=== PATIENT | female | born 1970 | race Caucasian/White ===

== ENCOUNTER 2017-10-12 10:30 | Emergency (ER) | payer MEDICARE ==
[~2017-10-12] VITALS: Ht 177.8 cm; Wt 74.5 kg
[~2017-10-12 10:30] MED LIST: AMBIEN 10MG10 MG PO; DILAUDID 2MG TAB2 MG PO; ESTRACE 1MG1 MG/TAB PO; EXCEDRIN1 TAB PO; FLEXERIL 1010 MG/TAB PO; GUAIFEN AC 10120 ML PO; IMITREX ST6 MG/0.5 M SC; IMITREX100 MG PO; IMITREX50 MG PO; INDERAL 20MG20 MG PO; LEXAPRO 10MG10 MG PO; LORTAB 10/500 51 TAB PO; LORTAB 5/500 501 TAB PO; MAGIC MOUTH PO; NAPROSYN500 MG PO; NO HOME MEDICATIONS; NORCO 325 MG-51 TAB PO; PAMELOR 25MG25 MG PO; PERCOCET 325 MG1 TA2; PERCOCET 325 MG1 TA2 PO; PHENERGAN 25 TA25 MG PO; SKELAXIN 800MG800 MG PO; VENTOLIN0.09 MG IH
[2017-10-12 10:31] VITALS: BP 132/64; PULSE 90; TEMP 98.6
[2017-10-12] MEDS ORDERED: WELLBUTRIN 75MG75 MG PO (10:34)
[2017-10-12] MEDS ORDERED: ZANAFLEX 4MG TAB4 MG PO (10:35)
== END 2017-10-12 11:22 | disposition home or self-care (01) ==
LOC: COL.ER 10:30
DX: G43.909 Migraine, unspecified, not intractable, without status migrainosus (principal); F17.210 Nicotine dependence, cigarettes, uncomplicated
CPT/HCPCS: J1170; J2550

== ENCOUNTER 2017-10-16 19:41 | Emergency (ER) | payer MEDICARE ==
[~2017-10-16] VITALS: Ht 177.8 cm; Wt 74.5 kg
[~2017-10-16 19:41] MED LIST changes: +WELLBUTRIN 75MG75 MG PO; +ZANAFLEX 4MG TAB4 MG PO
[2017-10-16 19:43] VITALS: BP 142/68; TEMP 98.1
[2017-10-16] MEDS ORDERED: PAMELOR 25MG25 MG PO (19:45)
[2017-10-16 21:38] VITALS: PULSE 80
== END 2017-10-16 21:41 | disposition home or self-care (01) ==
LOC: COL.ER 19:41
DX: G43.909 Migraine, unspecified, not intractable, without status migrainosus (principal); F32.9 Major depressive disorder, single episode, unspecified; F17.210 Nicotine dependence, cigarettes, uncomplicated
CPT/HCPCS: J1170; J2550

== ENCOUNTER 2017-10-31 10:51 | Emergency (ER) | payer MEDICARE ==
[~2017-10-31] VITALS: Ht 177.8 cm; Wt 75.0 kg
[2017-10-31 10:53] VITALS: BP 129/58; TEMP 98.7
[2017-10-31 11:43] VITALS: PULSE 74
== END 2017-10-31 11:44 | disposition home or self-care (01) ==
LOC: COL.ER 10:51
DX: G43.909 Migraine, unspecified, not intractable, without status migrainosus (principal); F32.9 Major depressive disorder, single episode, unspecified; F17.210 Nicotine dependence, cigarettes, uncomplicated; Z90.710 Acquired absence of both cervix and uterus
CPT/HCPCS: J2300; J2550

== ENCOUNTER 2018-03-07 20:42 | Emergency (ER) | payer MEDICARE ==
[~2018-03-07] VITALS: Ht 177.8 cm; Wt 77.3 kg
[2018-03-07 20:49] VITALS: BP 144/94; TEMP 99.4
[2018-03-07] MEDS ORDERED: AMBIEN 10MG10 MG PO (21:32)
[2018-03-07] MEDS ORDERED: PERCOCET 325 MG1 TA2 PO (22:34)
[2018-03-07 23:35] VITALS: PULSE 87
== END 2018-03-07 23:35 | disposition home or self-care (01) ==
LOC: COL.ER 20:42
DX: S00.83XA Contusion of other part of head, initial encounter (principal); S70.02XA Contusion of left hip, initial encounter; G43.909 Migraine, unspecified, not intractable, without status migrainosus; G89.29 Other chronic pain; Y04.0XXA Assault by unarmed brawl or fight, initial encounter; Y92.410 Unspecified street and highway as the place of occurrence of the external cause
CPT/HCPCS: J1170; J2550

== ENCOUNTER 2018-03-29 08:14 | Emergency (ER) | payer MEDICARE ==
[~2018-03-29] VITALS: Ht 177.8 cm; Wt 82.2 kg
[2018-03-29 08:17] VITALS: BP 145/67; TEMP 98.5
[2018-03-29 08:57] LABS: BASO # 0.1 (0.0-0.2); BASO % 0.9 % (0.0-2.0); EOS # 0.2 (0.0-0.7); EOS % 3.2 % (0-4.0); GRAN # 3.4 (1.4-6.5); GRAN % 48.4 % (42.2-75.2); HEMATOCRIT 42.9 % (37.0-47.0); HEMOGLOBIN 14.8 g/dl (12.5-16.0); LYMPH # 2.7 (1.2-3.4); LYMPH % 39.7 % (20.0-51.0); MEAN CELL VOLUME 87 fl (80.0-100.0); MEAN CORPUSCULAR HEMOGLOBIN 30 pg (27.0-31.0); MEAN CORPUSCULAR HGB CONC 35 g/dl (33.0-37.0); MEAN PLATELET VOLUME 10.1 fl (7.4-10.4); MONO # 0.5 (0.1-0.6); MONO % 7.5 % (1.7-9.3); PLATELET COUNT 293 K/mm3 (130-400); RED BLOOD COUNT 4.93 M/mm3 (4.10-5.30); REDCELL DISTRIBUTION WIDTH-CV 11.8 % (11.5-14.5)
[2018-03-29 09:10] LABS: ALANINE AMINOTRANSFERASE 26 U/L (9-52); ALBUMIN 4.2 gm/dL (3.5-5.0); ALKALINE PHOSPHATASE 71 U/L (50-136); ANION GAP 10 mmol/L (7-16); AST,SGOT 22 U/L (15-37); BILIRUBIN,TOTAL 0.5 mg/dL (0.0-1.0); BLOOD UREA NITROGEN 12 mg/dL (7-17); CALCIUM 9.1 mg/dL (8.4-10.2); CARBON DIOXIDE 28 mmol/L (22-30); CHLORIDE 102 mmol/L (98-107); CREATININE, serum 0.62 mg/dL (0.52-1.25); GLUCOSE 101 mg/dL (74-106); POTASSIUM 3.7 mmol/L (3.4-5.0); SODIUM 140 mmol/L (137-145); TOTAL PROTEIN 7.2 gm/dL (6.4-8.2)
[2018-03-29 09:14] LABS: C-REACTIVE PROTEIN < 0.5 mg/dL (0.0-0.9)
[2018-03-29] MEDS ORDERED: NAPROSYN500 MG PO (09:18)
[2018-03-29] MEDS ORDERED: PREDNISONE10 MG PO (09:18)
[2018-03-29] MEDS ORDERED: ZOFRAN ODT4 MG PO (09:18)
[2018-03-29 09:22] LABS: ERYTHROCYTE SEDIMENTATION RATE 4 mm/hr (0-20)
[2018-03-29 09:58] VITALS: PULSE 92
== END 2018-03-29 09:59 | disposition home or self-care (01) ==
LOC: COL.ER 08:14
PROVIDERS: Physician Assistant
DX: M79.675 Pain in left toe(s) (principal); G43.909 Migraine, unspecified, not intractable, without status migrainosus; F41.9 Anxiety disorder, unspecified; F32.9 Major depressive disorder, single episode, unspecified; F17.210 Nicotine dependence, cigarettes, uncomplicated
CPT/HCPCS: J0595; J2550

== ENCOUNTER 2018-04-03 17:48 | Emergency (ER) | payer MEDICARE ==
[~2018-04-03] VITALS: Ht 177.8 cm; Wt 81.8 kg
[~2018-04-03 17:48] MED LIST changes: +PREDNISONE10 MG PO; +ZOFRAN ODT4 MG PO
[2018-04-03 17:58] VITALS: BP 135/85; TEMP 99
[2018-04-03 20:35] VITALS: PULSE 98
== END 2018-04-03 20:35 | disposition home or self-care (01) ==
LOC: COL.ER 17:48
DX: G43.909 Migraine, unspecified, not intractable, without status migrainosus (principal); F17.210 Nicotine dependence, cigarettes, uncomplicated; F32.9 Major depressive disorder, single episode, unspecified; F41.9 Anxiety disorder, unspecified; Z90.89 Acquired absence of other organs; Z90.49 Acquired absence of other specified parts of digestive tract
CPT/HCPCS: J1170; J2550

== ENCOUNTER 2018-04-16 08:23 | Emergency (ER) | payer MEDICARE ==
[~2018-04-16] VITALS: Ht 177.8 cm; Wt 81.8 kg
[2018-04-16 08:29] VITALS: BP 132/60; TEMP 99.1
[2018-04-16 09:04] VITALS: PULSE 84
== END 2018-04-16 09:04 | disposition home or self-care (01) ==
LOC: COL.ER 08:23
DX: G43.909 Migraine, unspecified, not intractable, without status migrainosus (principal); F32.9 Major depressive disorder, single episode, unspecified
CPT/HCPCS: J1170; J2550

== ENCOUNTER 2018-04-20 10:56 | Emergency (ER) | payer MEDICARE ==
[~2018-04-20] VITALS: Ht 177.8 cm; Wt 83.2 kg
[2018-04-20 10:59] VITALS: BP 114/63; TEMP 99.1
[2018-04-20] MEDS ORDERED: PERCOCET 325 MG1 TA2 PO (12:51)
[2018-04-20 13:01] VITALS: PULSE 66
== END 2018-04-20 13:03 | disposition home or self-care (01) ==
LOC: COL.ER 10:56
DX: M54.5 Low back pain (principal); G43.909 Migraine, unspecified, not intractable, without status migrainosus; F17.210 Nicotine dependence, cigarettes, uncomplicated; F32.9 Major depressive disorder, single episode, unspecified; F41.9 Anxiety disorder, unspecified; Z98.890 Other specified postprocedural states
CPT/HCPCS: J1170; J1885; J2360

== ENCOUNTER 2018-08-06 13:02 | Emergency (ER) | payer OTHER, MEDICARE ==
[~2018-08-06] VITALS: Ht 177.8 cm; Wt 77.3 kg
[2018-08-06 13:10] VITALS: BP 151/77; TEMP 99
[2018-08-06 17:23] VITALS: PULSE 73
== END 2018-08-06 17:22 | disposition home or self-care (01) ==
LOC: COL.ER 13:02
DX: G43.909 Migraine, unspecified, not intractable, without status migrainosus (principal); F17.210 Nicotine dependence, cigarettes, uncomplicated; F12.90 Cannabis use, unspecified, uncomplicated; Z90.710 Acquired absence of both cervix and uterus; Z90.89 Acquired absence of other organs
CPT/HCPCS: J1170; J2550

== ENCOUNTER 2018-08-18 15:36 | Emergency (ER) | payer MEDICARE, OTHER ==
[~2018-08-18] VITALS: Ht 177.8 cm; Wt 83.5 kg
[2018-08-18 16:42] VITALS: BP 122/83; PULSE 95; TEMP 98.6
== END 2018-08-18 16:43 | disposition home or self-care (01) ==
LOC: COL.ER 15:36
DX: G43.909 Migraine, unspecified, not intractable, without status migrainosus (principal); F17.210 Nicotine dependence, cigarettes, uncomplicated
CPT/HCPCS: J1170; J1200; J2550

== ENCOUNTER 2018-09-09 11:53 | Emergency (ER) | payer MEDICARE, OTHER ==
[~2018-09-09] VITALS: Ht 177.8 cm; Wt 77.3 kg
[2018-09-09 12:13] VITALS: TEMP 97.7
[2018-09-09 16:49] VITALS: BP 110/60; PULSE 68
== END 2018-09-09 16:50 | disposition home or self-care (01) ==
LOC: COL.ER 11:53
DX: G43.909 Migraine, unspecified, not intractable, without status migrainosus (principal); F41.9 Anxiety disorder, unspecified; F32.9 Major depressive disorder, single episode, unspecified; F17.210 Nicotine dependence, cigarettes, uncomplicated; Z90.710 Acquired absence of both cervix and uterus; Z90.89 Acquired absence of other organs; Z90.49 Acquired absence of other specified parts of digestive tract; Z88.1 Allergy status to other antibiotic agents
CPT/HCPCS: J1200; J2765

== ENCOUNTER 2018-10-05 16:18 | Emergency (ER) | payer OTHER, MEDICARE ==
[~2018-10-05] VITALS: Ht 177.8 cm; Wt 75.7 kg
[2018-10-05 16:29] VITALS: BP 111/52; PULSE 69; TEMP 98.5
== END 2018-10-05 18:13 | disposition home or self-care (01) ==
LOC: COL.ER 16:18
DX: G43.909 Migraine, unspecified, not intractable, without status migrainosus (principal); F32.9 Major depressive disorder, single episode, unspecified; F41.9 Anxiety disorder, unspecified; Z87.891 Personal history of nicotine dependence; Z88.1 Allergy status to other antibiotic agents
CPT/HCPCS: J1200; J2550

== ENCOUNTER 2018-10-09 14:11 | Emergency (ER) | payer OTHER ==
[~2018-10-09] VITALS: Ht 177.8 cm; Wt 75.5 kg
[2018-10-09 14:23] VITALS: BP 141/60; PULSE 98; TEMP 99.2
[2018-10-09] MEDS ORDERED: CEPHALEXIN500 M1 PO (15:25)
[2018-10-09] MEDS ORDERED: ULTRAM 50MG TAB50 MG PO (15:25)
[2018-10-10] MEDS ORDERED: PHENERGAN 25 TA25 MG PO (00:06)
== END 2018-10-09 15:43 | disposition home or self-care (01) ==
LOC: COL.ER 14:11
DX: S61.412A Laceration without foreign body of left hand, initial encounter (principal); G43.909 Migraine, unspecified, not intractable, without status migrainosus; F32.9 Major depressive disorder, single episode, unspecified; F41.9 Anxiety disorder, unspecified; F17.210 Nicotine dependence, cigarettes, uncomplicated; Z23 Encounter for immunization; W26.8XXA Contact with other sharp object(s), not elsewhere classified, initial encounter; Y92.009 Unspecified place in unspecified non-institutional (private) residence as the place of occurrence of the external cause

== ENCOUNTER 2018-10-09 22:37 | Emergency (ER) | payer OTHER ==
[~2018-10-09] VITALS: Ht 177.8 cm; Wt 75.5 kg
[~2018-10-09 22:37] MED LIST changes: +CEPHALEXIN500 M1 PO; +ULTRAM 50MG TAB50 MG PO
[2018-10-09 22:42] VITALS: BP 137/76; TEMP 98
[2018-10-10] MEDS ORDERED: PHENERGAN 25 TA25 MG PO (00:06)
[2018-10-10 00:48] VITALS: PULSE 77
== END 2018-10-10 00:45 | disposition home or self-care (01) ==
LOC: COL.ER 22:37
DX: R11.2 Nausea with vomiting, unspecified (principal); M79.642 Pain in left hand; G43.909 Migraine, unspecified, not intractable, without status migrainosus; Z88.1 Allergy status to other antibiotic agents; Z87.891 Personal history of nicotine dependence
CPT/HCPCS: J1885; J2550

== ENCOUNTER → 2018-10-16 | Outpatient (CLI) | payer OTHER | LOC: COL.RAD 11:53 | DX: M54.2 Cervicalgia (principal); M79.602 Pain in left arm; M79.601 Pain in right arm; Z98.890 Other specified postprocedural states ==

== ENCOUNTER 2018-12-31 18:14 | Emergency (ER) | payer OTHER ==
[~2018-12-31] VITALS: Ht 177.8 cm; Wt 72.7 kg
[~2018-12-31 18:14] MED LIST changes: -WELLBUTRIN 75MG75 MG PO; +WELLBUTRIN XL300 M1 PO
[2018-12-31 18:22] VITALS: TEMP 98
[2018-12-31 21:10] VITALS: BP 158/84; PULSE 59
== END 2018-12-31 21:10 | disposition home or self-care (01) ==
LOC: COL.ER 18:14
DX: G43.909 Migraine, unspecified, not intractable, without status migrainosus (principal); F17.210 Nicotine dependence, cigarettes, uncomplicated; Z90.89 Acquired absence of other organs; Z90.49 Acquired absence of other specified parts of digestive tract; Z90.710 Acquired absence of both cervix and uterus
CPT/HCPCS: J0595; J1170; J1200; J1885; J2550; J7030

== ENCOUNTER 2019-01-03 16:12 | Emergency (ER) | payer OTHER ==
[~2019-01-03] VITALS: Ht 177.8 cm; Wt 72.7 kg
[2019-01-03 16:18] VITALS: BP 162/77; TEMP 98.2
[2019-01-03] MEDS ORDERED: CATAPRES 0.1MG0.1 MG PO (17:02)
[2019-01-03 20:00] VITALS: PULSE 93
== END 2019-01-03 20:00 | disposition home or self-care (01) ==
LOC: COL.ER 16:12
DX: G43.909 Migraine, unspecified, not intractable, without status migrainosus (principal); F32.9 Major depressive disorder, single episode, unspecified; F41.9 Anxiety disorder, unspecified; Z90.49 Acquired absence of other specified parts of digestive tract; Z90.89 Acquired absence of other organs; Z90.710 Acquired absence of both cervix and uterus; Z88.1 Allergy status to other antibiotic agents
CPT/HCPCS: J1200; J1885; J2765; J3010; J7030

== ENCOUNTER 2019-03-04 02:35 | Emergency (ER) | payer OTHER ==
[~2019-03-04] VITALS: Ht 177.8 cm; Wt 67.3 kg
[~2019-03-04 02:35] MED LIST changes: +CATAPRES 0.1MG0.1 MG PO
[2019-03-04 02:51] VITALS: TEMP 97.5
[2019-03-04 03:47] LABS: BASO # 0.1 (0.0-0.2); BASO % 0.5 % (0.0-2.0); EOS # 0.1 (0.0-0.7); EOS % 1.5 % (0-4.0); GRAN # 5.3 (1.4-6.5); GRAN % 58.8 % (42.2-75.2); HEMATOCRIT 41.9 % (37.0-47.0); HEMOGLOBIN 14.1 g/dl (12.5-16.0); MEAN CELL VOLUME 88 fl (80.0-100.0); MEAN CORPUSCULAR HEMOGLOBIN 30 pg (27.0-31.0); MEAN CORPUSCULAR HGB CONC 34 g/dl (33.0-37.0); MEAN PLATELET VOLUME 11.2 fl (7.4-10.4); MONO # 0.5 (0.1-0.6); MONO % 5.9 % (1.7-9.3); PLATELET COUNT 315 K/mm3 (130-400); RED BLOOD COUNT 4.76 M/mm3 (4.10-5.30)
[2019-03-04 03:50] LABS: INR 0.9 (0.8-3.0); PROTHROMBIN TIME 10.6 SECONDS (9.7-12.8)
[2019-03-04 03:54] LABS: ALANINE AMINOTRANSFERASE < 6 U/L (9-52); ALBUMIN 4.2 gm/dL (3.5-5.0); ALKALINE PHOSPHATASE 68 U/L (50-136); ANION GAP 13 mmol/L (7-16); AST,SGOT 21 U/L (15-37); BILIRUBIN,TOTAL 0.8 mg/dL (0.0-1.0); BLOOD UREA NITROGEN 16 mg/dL (7-17); CALCIUM 9.6 mg/dL (8.4-10.2); CARBON DIOXIDE 25 mmol/L (22-30); CHLORIDE 105 mmol/L (98-107); CREATININE, serum 0.68 (0.52-1.25); GLUCOSE 100 mg/dL (74-106); POTASSIUM 3.1 mmol/L (3.4-5.0); SODIUM 143 mmol/L (137-145); TOTAL PROTEIN 7.1 gm/dL (6.4-8.2)
[2019-03-04 04:05] LABS: TROPONIN-I < 0.012 ng/mL (0.000-0.035)
[2019-03-04 04:23] LABS: D-DIMER < 200.00 ng/mLDDu (200-230)
[2019-03-04 07:37] VITALS: BP 97/59; PULSE 55
== END 2019-03-04 07:35 | disposition home or self-care (01) ==
LOC: COL.ER 02:35
PROVIDERS: Emergency Medicine
DX: G43.909 Migraine, unspecified, not intractable, without status migrainosus (principal); R07.89 Other chest pain; I10 Essential (primary) hypertension; F17.210 Nicotine dependence, cigarettes, uncomplicated; Z90.49 Acquired absence of other specified parts of digestive tract; Z90.710 Acquired absence of both cervix and uterus
CPT/HCPCS: J1170; J2405; J7030

== ENCOUNTER 2019-06-16 08:24 | Emergency (ER) | payer OTHER ==
[~2019-06-16] VITALS: Ht 177.8 cm; Wt 66.8 kg
[2019-06-16 08:30] VITALS: BP 129/79; TEMP 98.7
[2019-06-16] MEDS ORDERED: TOPROL XL 50MG50 MG PO (08:36)
[2019-06-16 09:27] VITALS: PULSE 61
== END 2019-06-16 09:27 | disposition home or self-care (01) ==
LOC: COL.ER 08:24
DX: G43.909 Migraine, unspecified, not intractable, without status migrainosus (principal)
CPT/HCPCS: J1885; J2550

== ENCOUNTER 2019-07-14 11:17 | Emergency (ER) | payer OTHER ==
[~2019-07-14] VITALS: Ht 177.8 cm; Wt 65.9 kg
[~2019-07-14 11:17] MED LIST changes: +TOPROL XL 50MG50 MG PO
[2019-07-14 11:24] VITALS: BP 115/67; TEMP 98
[2019-07-14] MEDS ORDERED: WELLBUTRIN XL300 M1 PO (11:48)
[2019-07-14 14:09] VITALS: PULSE 55
== END 2019-07-14 14:10 | disposition home or self-care (01) ==
LOC: COL.ER 11:17
DX: G43.909 Migraine, unspecified, not intractable, without status migrainosus (principal); F17.210 Nicotine dependence, cigarettes, uncomplicated; F32.9 Major depressive disorder, single episode, unspecified; F41.9 Anxiety disorder, unspecified; Z88.1 Allergy status to other antibiotic agents; Z90.89 Acquired absence of other organs
CPT/HCPCS: J1200; J1885; J2550; J2765; J7030

== ENCOUNTER 2019-08-15 18:11 | Emergency (ER) | payer OTHER ==
[~2019-08-15] VITALS: Ht 177.8 cm; Wt 63.2 kg
[2019-08-15 18:15] VITALS: BP 141/66; TEMP 98.8
[2019-08-15 19:15] LABS: COLLECTION METHOD CLEAN CATCH
[2019-08-15 19:17] LABS: BASO # 0.1 (0.0-0.2); BASO % 1.1 % (0.0-2.0); EOS # 0.3 (0.0-0.7); EOS % 3.5 % (0-4.0); GRAN # 3.5 (1.4-6.5); GRAN % 40.9 % (42.2-75.2); HEMATOCRIT 40.1 % (37.0-47.0); LYMPH % 46.6 % (20.0-51.0); MEAN CELL VOLUME 88 fl (80.0-100.0); MEAN CORPUSCULAR HEMOGLOBIN 31 pg (27.0-31.0); MEAN CORPUSCULAR HGB CONC 35 g/dl (33.0-37.0); MEAN PLATELET VOLUME 10.9 fl (7.4-10.4); MONO # 0.7 (0.1-0.6); MONO % 7.7 % (1.7-9.3); PLATELET COUNT 308 K/mm3 (130-400); RED BLOOD COUNT 4.54 M/mm3 (4.10-5.30); REDCELL DISTRIBUTION WIDTH-CV 11.9 % (11.5-14.5)
[2019-08-15 19:21] LABS: MUCOUS Present /lpf; PH 8 (5-8); URINE APPEARANCE Clear; URINE BACTERIA None Seen /hpf; URINE BILIRUBIN Negative (NEGATIVE); URINE BLOOD Negative (NEGATIVE); URINE COLOR Yellow; URINE GLUCOSE Negative (NEGATIVE); URINE KETONE Negative (NEGATIVE); URINE LEUKOCYTE ESTERASE Trace (NEGATIVE); URINE NITRATE Negative (NEGATIVE); URINE PROTEIN(semi-quant) Negative (NEGATIVE); URINE RBC 0-2 /hpf
[2019-08-15 19:32] LABS: ALBUMIN 4.3 gm/dL (3.5-5.0); BILIRUBIN,TOTAL 0.3 mg/dL (0.0-1.0); CALCIUM 9.4 mg/dL (8.4-10.2); CREATININE, serum 0.9 (0.52-1.25); POTASSIUM 3.1 mmol/L (3.4-5.0); TOTAL PROTEIN 6.9 gm/dL (6.4-8.2)
[2019-08-15 21:02] VITALS: PULSE 64
== END 2019-08-15 21:02 | disposition home or self-care (01) ==
LOC: COL.ER 18:11
PROVIDERS: Nurse Practitioner
DX: R10.9 Unspecified abdominal pain (principal); F32.9 Major depressive disorder, single episode, unspecified; F41.9 Anxiety disorder, unspecified; F17.210 Nicotine dependence, cigarettes, uncomplicated; Z90.710 Acquired absence of both cervix and uterus; Z90.89 Acquired absence of other organs
CPT/HCPCS: J1170; J2405; J7030

== ENCOUNTER → 2019-08-30 | Outpatient (CLI) | payer OTHER | LOC: COL.RAD 14:30 | DX: N20.0 Calculus of kidney (principal) ==

== ENCOUNTER 2020-02-13 11:24 | Emergency (ER) | payer OTHER ==
[~2020-02-13] VITALS: Ht 177.8 cm; Wt 63.6 kg
[2020-02-13 11:31] VITALS: BP 145/88; TEMP 98.7
[2020-02-13 11:56] LABS: COLLECTION METHOD CLEAN CATCH
[2020-02-13 12:02] LABS: MUCOUS Present /lpf; PH 6 (5-8); SQUAMOUS EPITHELIAL 0-2 /hpf; URINE APPEARANCE Clear; URINE BACTERIA None Seen /hpf; URINE BILIRUBIN Negative (NEGATIVE); URINE BLOOD Negative (NEGATIVE); URINE COLOR Straw; URINE GLUCOSE Negative (NEGATIVE); URINE KETONE Negative (NEGATIVE); URINE LEUKOCYTE ESTERASE Negative (NEGATIVE); URINE NITRATE Negative (NEGATIVE); URINE PROTEIN(semi-quant) Negative (NEGATIVE); URINE RBC 0-2 /hpf; URINE UROBILINOGEN Negative (NEGATIVE)
[2020-02-13] MEDS ORDERED: ZOFRAN ODT4 MG PO (12:44)
[2020-02-13] MEDS ORDERED: PERCOCET 325 MG1 TA2 PO (12:44)
[2020-02-13 12:50] VITALS: PULSE 66
== END 2020-02-13 12:50 | disposition home or self-care (01) ==
LOC: COL.ER 11:24
PROVIDERS: Emergency Medicine
DX: N20.0 Calculus of kidney (principal); Z87.442 Personal history of urinary calculi; Z98.890 Other specified postprocedural states; Z90.49 Acquired absence of other specified parts of digestive tract; Z90.710 Acquired absence of both cervix and uterus; F17.210 Nicotine dependence, cigarettes, uncomplicated

== ENCOUNTER → 2020-02-15 | Outpatient (CLI) | payer OTHER | LOC: COL.RAD 13:26 | DX: N20.0 Calculus of kidney (principal); Z90.49 Acquired absence of other specified parts of digestive tract; Z90.710 Acquired absence of both cervix and uterus ==

== ENCOUNTER → 2020-04-03 | Outpatient (CLI) | payer OTHER ==
[~2020-04-03] MED LIST changes: +AMBIEN 5MG TABLE5 MG PO
== END ==
LOC: ZCOL.LAB 15:56
DX: R05 Cough (principal); R50.9 Fever, unspecified; Z20.828 Contact with and (suspected) exposure to other viral communicable diseases

== ENCOUNTER 2020-04-19 19:43 | Emergency (ER) | payer OTHER ==
[~2020-04-19] VITALS: Ht 177.8 cm; Wt 61.4 kg
[2020-04-19 19:52] VITALS: TEMP 98.5
[2020-04-19 22:06] LABS: COLLECTION METHOD CLEAN CATCH
[2020-04-19 22:09] LABS: BASO # 0.1 (0.0-0.2); BASO % 0.8 % (0.0-2.0); EOS # 0.4 (0.0-0.7); EOS % 4.9 % (0-4.0); GRAN # 2.8 (1.4-6.5); GRAN % 39.2 % (42.2-75.2); HEMATOCRIT 40.9 % (37.0-47.0); HEMOGLOBIN 13.9 g/dl (12.5-16.0); LYMPH # 3.4 (1.2-3.4); LYMPH % 47.7 % (20.0-51.0); MEAN CELL VOLUME 91 fl (80.0-100.0); MEAN CORPUSCULAR HEMOGLOBIN 31 pg (27.0-31.0); MEAN CORPUSCULAR HGB CONC 34 g/dl (33.0-37.0); MEAN PLATELET VOLUME 10.5 fl (7.4-10.4); MONO # 0.5 (0.1-0.6); MONO % 7.1 % (1.7-9.3); PLATELET COUNT 266 K/mm3 (130-400); RED BLOOD COUNT 4.49 M/mm3 (4.10-5.30); REDCELL DISTRIBUTION WIDTH-CV 11.9 % (11.5-14.5)
[2020-04-19 22:12] LABS: MUCOUS Present /lpf; PH 6 (5-8); URINE APPEARANCE Clear; URINE BACTERIA None Seen /hpf; URINE BILIRUBIN Negative (NEGATIVE); URINE BLOOD Negative (NEGATIVE); URINE COLOR Yellow; URINE GLUCOSE Negative (NEGATIVE); URINE KETONE Negative (NEGATIVE); URINE LEUKOCYTE ESTERASE Negative (NEGATIVE); URINE NITRATE Negative (NEGATIVE); URINE PROTEIN(semi-quant) Negative (NEGATIVE); URINE RBC 0-2 /hpf
[2020-04-19 22:23] LABS: ALANINE AMINOTRANSFERASE 24 U/L (4-34); ALBUMIN 4.3 gm/dL (3.5-5.0); ALKALINE PHOSPHATASE 83 U/L (50-136); ANION GAP 7 mmol/L (7-16); AST,SGOT 24 U/L (15-37); BILIRUBIN,TOTAL 0.4 mg/dL (0.0-1.0); BLOOD UREA NITROGEN 18 mg/dL (7-17); CALCIUM 9.2 mg/dL (8.4-10.2); CARBON DIOXIDE 29 mmol/L (22-30); CHLORIDE 104 mmol/L (98-107); CREATININE, serum 0.65 (0.52-1.25); GLUCOSE 94 mg/dL (74-106); LIPASE 53 U/L (23-300); POTASSIUM 3.4 mmol/L (3.4-5.0); SODIUM 140 mmol/L (137-145); TOTAL PROTEIN 7.1 gm/dL (6.4-8.2)
[2020-04-19 22:28] LABS: C-REACTIVE PROTEIN < 0.5 mg/dL (0.0-0.9)
[2020-04-19 23:50] VITALS: BP 150/70; PULSE 80
== END 2020-04-19 23:50 | disposition home or self-care (01) ==
LOC: COL.ER 19:43
PROVIDERS: Nurse Practitioner
DX: R10.11 Right upper quadrant pain (principal); G43.909 Migraine, unspecified, not intractable, without status migrainosus; F32.9 Major depressive disorder, single episode, unspecified; F41.9 Anxiety disorder, unspecified; F17.210 Nicotine dependence, cigarettes, uncomplicated; Z90.49 Acquired absence of other specified parts of digestive tract; Z90.710 Acquired absence of both cervix and uterus; Z88.1 Allergy status to other antibiotic agents
CPT/HCPCS: J1170; J2405; J7030

== ENCOUNTER → 2020-04-20 | Outpatient (CLI) | payer OTHER | LOC: COL.RAD 10:27 | DX: R74.8 Abnormal levels of other serum enzymes (principal); Z90.49 Acquired absence of other specified parts of digestive tract ==

== ENCOUNTER 2020-05-18 13:28 | Emergency (ER) | payer OTHER ==
[~2020-05-18] VITALS: Ht 177.8 cm; Wt 61.4 kg
[2020-05-18 13:33] VITALS: TEMP 98.2
[2020-05-18 14:18] LABS: COLLECTION METHOD CLEAN CATCH
[2020-05-18 14:24] LABS: BASO # 0.1 (0.0-0.2); EOS # 0.1 (0.0-0.7); GRAN # 2.9 (1.4-6.5); GRAN % 49.4 % (42.2-75.2); HEMATOCRIT 37.9 % (37.0-47.0); HEMOGLOBIN 12.8 g/dl (12.5-16.0); LYMPH # 2.4 (1.2-3.4); LYMPH % 40.8 % (20.0-51.0); MEAN CELL VOLUME 91 fl (80.0-100.0); MEAN CORPUSCULAR HEMOGLOBIN 31 pg (27.0-31.0); MEAN CORPUSCULAR HGB CONC 34 g/dl (33.0-37.0); MONO # 0.4 (0.1-0.6); MONO % 6.6 % (1.7-9.3); PLATELET COUNT 262 K/mm3 (130-400); RED BLOOD COUNT 4.15 M/mm3 (4.10-5.30); REDCELL DISTRIBUTION WIDTH-CV 11.7 % (11.5-14.5)
[2020-05-18 14:28] LABS: MUCOUS Present /lpf; PH 6 (5-8); URINE APPEARANCE Hazy; URINE BACTERIA Rare /hpf; URINE BILIRUBIN Negative (NEGATIVE); URINE BLOOD Negative (NEGATIVE); URINE COLOR Yellow; URINE GLUCOSE Negative (NEGATIVE); URINE KETONE Negative (NEGATIVE); URINE LEUKOCYTE ESTERASE Negative (NEGATIVE); URINE NITRATE Negative (NEGATIVE); URINE PROTEIN(semi-quant) Negative (NEGATIVE); URINE RBC 0-2 /hpf; URINE UROBILINOGEN Negative (NEGATIVE)
[2020-05-18 14:36] LABS: ALANINE AMINOTRANSFERASE 14 U/L (4-34); ALBUMIN 3.9 gm/dL (3.5-5.0); ALKALINE PHOSPHATASE 50 U/L (50-136); ANION GAP 6 mmol/L (7-16); AST,SGOT 21 U/L (15-37); BILIRUBIN,TOTAL 0.6 mg/dL (0.0-1.0); BLOOD UREA NITROGEN 13 mg/dL (7-17); CALCIUM 9.1 mg/dL (8.4-10.2); CARBON DIOXIDE 28 mmol/L (22-30); CHLORIDE 106 mmol/L (98-107); CREATININE, serum 0.78 (0.52-1.25); GLUCOSE 93 mg/dL (74-106); LIPASE 49 U/L (23-300); POTASSIUM 3.5 mmol/L (3.4-5.0); SODIUM 140 mmol/L (137-145); TOTAL PROTEIN 6.1 gm/dL (6.4-8.2)
[2020-05-18 14:40] LABS: C-REACTIVE PROTEIN < 0.5 mg/dL (0.0-0.9)
[2020-05-18 15:45] VITALS: BP 117/66; PULSE 50
== END 2020-05-18 15:45 | disposition home or self-care (01) ==
LOC: COL.ER 13:28
PROVIDERS: Emergency Medicine
DX: R10.11 Right upper quadrant pain (principal); G43.909 Migraine, unspecified, not intractable, without status migrainosus; Z90.49 Acquired absence of other specified parts of digestive tract; Z88.1 Allergy status to other antibiotic agents; Z32.02 Encounter for pregnancy test, result negative
CPT/HCPCS: C9113; J1170; J1630; J7030; Q9967

== ENCOUNTER 2020-06-03 04:45 | Emergency (ER) | payer OTHER ==
[~2020-06-03] VITALS: Ht 177.8 cm; Wt 61.4 kg
[2020-06-03 04:58] VITALS: TEMP 97.3
[2020-06-03] MEDS ORDERED: PRILOSEC10 MG PO (05:01)
[2020-06-03 05:32] LABS: BASO % 0.3 % (0.0-2.0); EOS # 0.1 (0.0-0.7); EOS % 0.6 % (0-4.0); GRAN # 7.7 (1.4-6.5); GRAN % 64.6 % (42.2-75.2); HEMATOCRIT 45.7 % (37.0-47.0); LYMPH # 3.1 (1.2-3.4); LYMPH % 26.4 % (20.0-51.0); MEAN CELL VOLUME 91 fl (80.0-100.0); MEAN CORPUSCULAR HEMOGLOBIN 32 pg (27.0-31.0); MEAN CORPUSCULAR HGB CONC 35 g/dl (33.0-37.0); MEAN PLATELET VOLUME 10.4 fl (7.4-10.4); MONO # 0.9 (0.1-0.6); MONO % 7.8 % (1.7-9.3); PLATELET COUNT 331 K/mm3 (130-400); RED BLOOD COUNT 5.05 M/mm3 (4.10-5.30)
[2020-06-03 05:38] LABS: PROTHROMBIN TIME 11.6 SECONDS (9.7-12.8)
[2020-06-03 05:41] LABS: ALBUMIN 4.8 gm/dL (3.5-5.0); BILIRUBIN,TOTAL 0.9 mg/dL (0.0-1.0); CALCIUM 10.9 mg/dL (8.4-10.2); CREATININE, serum 0.66 (0.52-1.25); POTASSIUM 3.1 mmol/L (3.4-5.0); TOTAL PROTEIN 7.9 gm/dL (6.4-8.2)
[2020-06-03 06:57] LABS: COLLECTION METHOD CLEAN CATCH
[2020-06-03] MEDS ORDERED: ZOFRAN 4MG T4 MG/TAB PO (07:06)
[2020-06-03] MEDS ORDERED: CARAFATE 1GM1 G PO (07:06)
[2020-06-03 07:13] LABS: MUCOUS Present /lpf; PH 7 (5-8); URINE APPEARANCE Hazy; URINE BACTERIA Occasional /hpf; URINE BILIRUBIN Negative (NEGATIVE); URINE BLOOD Negative (NEGATIVE); URINE COLOR Yellow; URINE GLUCOSE Negative (NEGATIVE); URINE KETONE Negative (NEGATIVE); URINE LEUKOCYTE ESTERASE 1+ (NEGATIVE); URINE NITRATE Negative (NEGATIVE); URINE PROTEIN(semi-quant) Negative (NEGATIVE); URINE UROBILINOGEN Negative (NEGATIVE)
[2020-06-03 07:31] VITALS: BP 153/66; PULSE 78
== END 2020-06-03 07:40 | disposition home or self-care (01) ==
LOC: COL.ER 04:45
PROVIDERS: Emergency Medicine
DX: R10.13 Epigastric pain (principal); R10.12 Left upper quadrant pain; R19.7 Diarrhea, unspecified; R11.2 Nausea with vomiting, unspecified; R50.9 Fever, unspecified; G43.909 Migraine, unspecified, not intractable, without status migrainosus; Z20.828 Contact with and (suspected) exposure to other viral communicable diseases; Z87.442 Personal history of urinary calculi; Z88.1 Allergy status to other antibiotic agents
CPT/HCPCS: J1790; J2405; J7030

== ENCOUNTER 2020-06-09 07:00 | Day surgery (SDC) | payer OTHER ==
[~2020-06-09] VITALS: Ht 177.8 cm; Wt 60.5 kg
[~2020-06-09 07:00] MED LIST changes: +CARAFATE 1GM1 G PO; +PRILOSEC10 MG PO; +ZOFRAN 4MG T4 MG/TAB PO
[2020-06-09 07:42] VITALS: BP 92/56; PULSE 69; TEMP 98.1
[2020-06-09 08:40] VITALS: BP 106/43; PULSE 59; TEMP 98.1
--- NOTE | 2020-06-09 08:40 | NUR ---
Patient arrives to [facility] via cart, accompanied by [facility] RN Jayne. She is lying on the cart, awake/alert. She ambulates to the chair in her room with standby assist. She is given warm blankets for comfort. Monitoring is applied - VSS on room air. She denies pain or nausea. Lights are dimmed and she is resting comfortably. Will continue to monitor.
[2020-06-09 08:55] VITALS: BP 121/64; PULSE 50
--- NOTE | 2020-06-09 08:55 | NUR ---
Patient is resting comfortably in her room. She denies pain or nausea. VSS on room air. She is offered and receives a muffin and some OJ to drink.
[2020-06-09 09:10] VITALS: BP 133/72; PULSE 57
[2020-06-09 09:25] VITALS: BP 115/68; PULSE 58
--- NOTE | 2020-06-09 09:31 | NUR ---
Dr. Robert comes to the bedside and speaks with the patient at this time.
--- NOTE | 2020-06-09 09:50 | NUR ---
Patient has met discharge criteria. Discharge instructions are discussed with the patient. She denies questions and verbalizes understanding. PIV is removed with catheter intact and hemostasis achieved. She changes to her clothing independently. She is escorted to the exit via wheelchair by staff. Her friend, Laurel, meets her at the patient entrance and drives her home in private vehicle at 0950.
== END 2020-06-09 09:50 | disposition home or self-care (01) ==
LOC: SDCO 07:00
DX: K29.50 Unspecified chronic gastritis without bleeding (principal); K31.84 Gastroparesis; Z87.11 Personal history of peptic ulcer disease; Z20.828 Contact with and (suspected) exposure to other viral communicable diseases; Z91.040 Latex allergy status; Z88.1 Allergy status to other antibiotic agents; F41.9 Anxiety disorder, unspecified; F33.41 Major depressive disorder, recurrent, in partial remission
CPT/HCPCS: J2704; J7030

== ENCOUNTER 2022-05-09 08:25 | Day surgery (SDC) | payer BC ==
[~2022-05-09] VITALS: Ht 177.8 cm; Wt 71.4 kg
[2022-05-09] MEDS ORDERED: WELLBUTRIN PO (08:57)
[2022-05-09] MEDS ORDERED: DESYREL 100MG100 MG PO (08:57)
[2022-05-09 09:03] VITALS: BP 102/72; PULSE 70; TEMP 97.7
--- NOTE | 2022-05-09 09:25 | NUR ---
0915 - Orders recieved from Dr. Shields for Soap Suds emena 1000 ml; RN prepared the bathroom for PT. PT verbalized understanding verbal instructions, red cord is within reach if needed. PT requested privacy.
--- NOTE | 2022-05-09 09:34 | NUR ---
0934 - PT had finished the enema and showed RN the results in toilet, clear liquid w/ a tinge of green. PT ambulates back to room independely, call peguero within reach. RN is to start IV
--- NOTE | 2022-05-09 11:13 | NUR ---
1105 - Verbal report obtained from DR regarding procedure and PT status, who provided direct cell number if needed before leaving facility.
[2022-05-09 11:15] VITALS: BP 116/64; PULSE 54; TEMP 96.7
--- NOTE | 2022-05-09 11:22 | NUR ---
1115 - PT arrives very drowsy, able to answer simple questions with one - two word responses. Montiors applied and vitals obtained, four warm blankets applied and non-slip socks remain on. PT states "not ready" when asked about somthing to drink. Call peguero is within reach next to her hand. PT assisted w/ ambulating from cart to chair 2:1 w/ RN's; gait is unsteady. PT denies pain/nausea.
[2022-05-09 11:30] VITALS: BP 135/76; PULSE 52
--- NOTE | 2022-05-09 11:31 | NUR ---
1120 - Water w/ a little ice provided by RN in case PT wakes up thristy; call peguero remains within reach.
--- NOTE | 2022-05-09 11:44 | NUR ---
1130 - VSS. PT requsted RN call her boyfriend BERTA, when reached he stated he was in surgical services waiting room. PT provided snack per PT request and asked if it was OK to bring boyfriend into room. She states "yes, please". Call peguero remains within reach. 1140 - Boyfriend was brought into room. PT denies pain/nausea and continues to snack/drink.
[2022-05-09 11:45] VITALS: BP 126/65; PULSE 52
--- NOTE | 2022-05-09 11:47 | NUR ---
1145 - VSS. PT has finished snack and drink; expressed desire to be discharged. PT asked if she should get changed, RN told her to wait until IV is discontinued. PT verbalized understanding; call peguero remains within reach if needed.
[2022-05-09 12:00] VITALS: BP 133/79; PULSE 51
--- NOTE | 2022-05-09 12:06 | NUR ---
1200 - VSS. IV discontinued and catheter tip intact. Pressure bandage applied and no redness or swelling noted. DC instructions and educational material revewed w/ PT who verbalized understanding and signed the related paperwork. Questions answered to PT satisfaction. PT refused RN assistance changing; visitor remains present and call peguero remains within reach if needed.
--- NOTE | 2022-05-09 12:19 | NUR ---
1215 - PT dismissed from [facility] via wheelchair to PT entrence by Rin LINDA. PT has DC packet and personal belongings, PT was transferred into the care of BERTA who is driving private truck.
== END 2022-05-09 12:20 | disposition home or self-care (01) ==
LOC: SDCO 08:25
DX: Z12.11 Encounter for screening for malignant neoplasm of colon (principal); D12.3 Benign neoplasm of transverse colon; F17.200 Nicotine dependence, unspecified, uncomplicated
CPT/HCPCS: J2704; J7030